=== PATIENT | male | born 1945 ===

== ENCOUNTER 2018-08-30 10:03 | Inpatient (IN) | payer MEDICARE, MEDICAID ==
[2018-08-30 10:09] VITALS: BMI 25.0
--- NOTE | 2018-08-30 12:44 | RAD ---
HISTORY: SOB COMPARISON: Chest x-ray performed 04/09/17 TECHNIQUE: Chest PA and lateral FINDINGS: LUNGS: Central vascular prominence. Mild hilar/infrahilar atelectasis or infiltrate. Please note that chest x-ray has limited sensitivity for the detection of pulmonary masses. PLEURA: No significant pleural effusion identified. No definite pneumothorax . CARDIOVASCULAR: Heart size appears within normal limits. Atherosclerotic calcifications. OSSEOUS STRUCTURES: Degenerative changes. VISUALIZED UPPER ABDOMEN: Elevation of the right hemidiaphragm. OTHER FINDINGS: Partially imaged right upper extremity vascular stent. Interval addition of left vascular stent, left axillary/subclavian vein. IMPRESSION: Central vascular prominence. Mild hilar/infrahilar atelectasis or infiltrate.
[2018-08-30 13:05] LABS: BASO % 0.7 % (0.0-2.0); EOS # 0.2 K/uL (0.0-0.7); HEMOGLOBIN 11.9 g/dL (12.0-18.0); LYMPH # 0.9 K/uL (1.0-4.3); LYMPH % 17.7 % (20.0-40.0); MEAN CELL VOLUME 95.2 fL (80.0-94.0); MEAN CORPUSCULAR HEMOGLOBIN 31.8 pg (27.0-31.0); MEAN CORPUSCULAR HGB CONC 33.4 g/dL (33.0-37.0); MEAN PLATELET VOLUME 7.8 fL (7.2-11.7); MONO # 0.4 K/uL (0.0-0.8); MONO % 8.2 % (0.0-10.0); NEUT # 3.7 K/uL (1.8-7.0); NEUT % 70.4 % (50.0-75.0); NRBC % 0.1 % (0.0-2.0); RBC 3.73 Mil/uL (4.40-5.90); RED CELL DISTRIBUTION WIDTH 16.3 % (11.5-14.5); WHITE BLOOD COUNT 5.3 K/uL (4.8-10.8)
[2018-08-30 13:09] LABS: ALB/GLOB RATIO 1.4 (1.0-2.1); ALBUMIN 4.4 g/dL (3.5-5.0)
--- NOTE | 2018-08-30 13:15 | C.PDOC ---
History Of Present Illness 73 years old male with PMHx of ESRD (on dialysis MWF) presents to ED for complaints of non-productive cough associated with upper pain that began 3 days ago. Patient states he had dialysis today. Denies shortness of breath, chest pa in, nausea, vomiting, or any other complaints. Chief Complaint (Nursing): Cough, Cold, Congestion History Per: Patient History/Exam Limitations: no limitations Onset/Duration Of Symptoms: Days Current Symptoms Are (Timing): Still Present Recent travel outside of the [place]: No Past Medical History Reviewed: Historical Data, Nursing Documentation, Vital Signs Vital Signs: Last Vital Signs Temp 98.3 F 08/30/18 12:26 Pulse 76 08/30/18 12:26 Resp 18 08/30/18 12:26 BP 144/75 08/30/18 12:26 Pulse Ox 100 08/30/18 12:26 - Medical History PMH: Arthritis (BOTH KNEES-ANTIONETTE. IN COLD WEATHER), Asthma, COPD, HTN, Hypercholesterolemia, Kidney Stones, Pneumonia (HOSPITALIZED 2015), End Stage Renal Disease, Chronic Kidney Disease - [facility] Procedures BYPASS LEFT BRACHIAL ARTERY TO LOWER ARM VEIN, OPEN APPROACH (08/16/16) CONTROL BLEEDING IN RIGHT UPPER ARM, PERCUTANEOUS APPROACH (06/22/16) FLUOROSCOPY OF SUPERIOR VENA CAVA, GUIDANCE (06/22/16) HEMODIALYSIS (11/08/13) INSERTION OF INFUSION DEV INTO SUP VENA CAVA, PERC APPROACH (06/22/16) PERFORMANCE OF URINARY FILTRATION, MULTIPLE (06/22/16) PERFORMANCE OF URINARY FILTRATION, SINGLE (08/16/16) REVISION OF SYNTHETIC SUBSTITUTE IN UP ART, OPEN APPROACH (06/22/16) TRANSFUSE NONAUT RED BLOOD CELLS IN PERIPH VEIN, PERC (06/22/16) Family History: States: Unknown Family Hx - Social History Hx Tobacco Use: No Hx Alcohol Use: No Hx Substance Use: No - Immunization History Hx Tetanus Toxoid Vaccination: No Hx Influenza Vaccination: No Hx Pneumococcal Vaccination: No Review Of Systems Except As Marked, All Systems Reviewed And Found Negative. Respiratory: Positive for: Cough Musculoskeletal: Positive for: Back Pain Physical Exam - Physical Exam Appears: Non-toxic, No Acute Distress Skin: Normal Color, Warm, Dry, No Rash Head: Atraumatic, Normacephalic Eye(s): bilateral: Normal Inspection, PERRL, EOMI Oral Mucosa: Moist Throat: Normal, No Erythema, No Exudate, No Drooling Neck: Normal ROM, Supple Chest: Symmetrical, No Tenderness Cardiovascular: Rhythm Regular, No Murmur Respiratory: Normal Breath Sounds, No Rales, No Rhonchi, No Wheezing Gastrointestinal/Abdominal: Bowel Sounds (Active ), Soft, No Tenderness, No Guarding, No Rebound Extremity: Normal ROM, No Pedal Edema, Other (AV graft left upper extremity with positive bruit and thrill. ) Extremity: Bilateral: Normal ROM Pulses: Left Radial: Normal, Right Radial: Normal Neurological/Psych: Oriented x3, Normal Speech, Normal Motor, Normal Sensation, Normal Reflexes Gait: Steady ED Course And Treatment - Laboratory Results Result Diagrams: 09/02/18 06:59 09/02/18 06:59 Lab Results: Total Bilirubin 0.8 mg/dL (0.2-1.3) 08/30/18 12:50 AST 35 U/L (17-59) 08/30/18 12:50 ALT 22 U/L (21-72) 08/30/18 12:50 Alkaline Phosphatase 57 U/L (38-126) 08/30/18 12:50 Total Protein 7.6 g/dL (6.3-8.3) 08/30/18 12:50 Albumin 4.4 g/dL (3.5-5.0) 08/30/18 12:50 Globulin 3.2 gm/dL (2.2-3.9) 08/30/18 12:50 Albumin/Globulin Ratio 1.4 (1.0-2.1) 08/30/18 12:50 O2 Sat by Pulse Oximetry: 100 (RA) Pulse Ox Interpretation: Normal - Other Rad CXR X-Ray: Viewed By Me, Read By Radiologist Interpretation: HISTORY: SOB. COMPARISON: Chest x-ray performed 04/09/17. TECHNIQUE: Chest PA and lateral. FINDINGS: LUNGS: Central vascular prominence. Mild hilar/infrahilar atelectasis or infiltrate. Please note that chest x-ray has limited sensitivity for the detection of pulmonary masses. PLEURA: No significant pleural effusion identified. No definite pneumothorax . CARDIOVASCULAR: Heart size appears within normal limits. Atherosclerotic calcifications. OSSEOUS STRUCTURES: Degenerative changes. VISUALIZED UPPER ABDOMEN: Elevation of the right hemidiaphragm. OTHER FINDINGS: Partially imaged right upper extremity vascular stent. Interval addition of left vascular stent, left axillary/subclavian vein. IMPRESSION: Central vascular prominence. Mild hilar/infrahilar atelectasis or infiltrate. Medical Decision Making Medical Decision Making: Plan: * Blood work * CXR * Blood culture Progress: 2:18 - Spoke with Em Alexander which accepted the patient for admission under his service. Disposition Counseled Patient/Family Regarding: Studies Performed, Diagnosis - Disposition Disposition: HOSPITALIZED Disposition Time: 02:18 Condition: STABLE - Clinical Impression Clinical Impression: Pneumonia - Scribe Statement The provider has reviewed the documentation as recorded by the Scribe Nikolai Tao All medical record entries made by the Nurysibeladio were at my direction and personally dictated by me. I have reviewed the chart and agree that the record accurately reflects my personal performance of the history, physical exam, medical decision making, and the department course for this patient. I have also personally directed, reviewed, and agree with the discharge instructions and disposition.
[2018-08-30] MEDS ORDERED: cefTRIAXone IV 1 gm in Dextros 50 ML IVPB ONE (14:15)
[2018-08-30] MEDS ORDERED: Azithromycin 500 MG in Sodium Chloride 0.9% 250 ML IVPB STA (14:16)
[2018-08-30] MEDS ORDERED: Azithromycin 500mg/250ML NS 500 MG/250 ML BAG IVPB ONE (14:23)
[2018-08-31] MEDS: Azithromycin 500 MG in Sodium Chloride 0.9% 250 ML IVPB SCH (09:48)
--- NOTE | 2018-08-31 11:41 | CP.PCM.CON ---
History of Present Illness - History of Present Illness History of Present Illness: Nephrology Consultation Note: Assessment: Stable Pneumonia Hypertensive Chronic Kidney Disease (I12.0) End stage renal disease (N18.6) dependence on hemodialysis (Z99.2) (MWF) via AVF Anemia (D64.9), Hyperphosphatemia (E83.39), Secondary Hyperparathyroidism (E21.1), HTN (I12.0) Plan: No acute need for dialysis today. Will plan for dialysis tomorrow. Continue with Nephrovite 1 tab/day. PRBC as needed for anemia. Not on JAYA with dialysis as last Hb 11.9 Continue with phos binders, last phos level: check BP control with meds as ordered. Patient on RAAS senia as losartan Glycemic control, Dialysis consistent diet Further work up/management as per primary team Dose meds/antibiotics (if needed) for ESRD status. Avoid fleets enema/magnesium based laxatives. Thanks for allowing me to participate in care of your patient. Will follow patient with you. Please call if any Qs. had d/w team Dr Reji Simon Office: [phone] Chief Complaint;cough HPI: Pt is a 73 M with hx of ESRD on hemodialysis (MWF) via left AVF @ [facility] with Dr Rika serna , last dialysis mon, chronic anemia, h yperphosphatemia, secondary hyperparathyroidism, hypertension presented with complaints of cough and admitted with pneumonia Renal consult requested for ESRD management. besides cough, pt feels usual health. no SOB or fever/chills ROS: Cardiovascular: No chest pain. Pulmonary: No shortness of breath but has cough Gastrointestinal: denies abdominal pain No nausea. No vomiting. Genitourinary: No pain while urinating. Denies blood in urine. All other negative except as mentioned in HPI Physical Examination: General Appearance: Comfortable, in no acute respiratory distress, co-operative . Vitals reviewed and noted as below Head; Atraumatic, normocephalic ENT: no ulcers no thrush. Tongue is midline. Oropharynx: no rash or ulcers. EYES: Pupils are equal, round and reactive to light accommodation. Eye muscles and extraocular movement intact. Sclera is anicteric. Neck; supple no lymphadenopathy, no thyromegaly or bruit Lungs: Normal respiratory rate/effort. Breath sounds bilateral equal and left side rales + Heart: Normal rate. s1s2 normal. No rub or gallop. Extremities: no edema. No varicose veins Neurological: Patient is alert, awake and oriented to person, place and time. No focal deficit. Strength bilateral appropriate and equal Skin: Warm and dry. Normal turgor. No rash. Palpitation: Normal elasticity for age Abdomen: Abdomen is soft. Bowel sounds +. There is no abdominal tenderness, no guarding/rigidity or organomegaly Psych: normal insight and normal affect/mood MSK: no joint tenderness or swelling. Digits and nails normal, no deformity : kidney or bladder not palpable Access: AVF Labs/imaging reviewed. Past medical history, past surgical history, family history, social history, allergy reviewed and noted as below Family Hx: no hx of CKD. Non contributory Past Patient History - Infectious Disease Hx of Infectious Diseases: None - Past Medical History & Family History Past Medical History?: Yes - Past Social History Smoking Status: Never Smoked - CARDIAC Hx Hypercholesterolemia: Yes Hx Hypertension: Yes - PULMONARY Hx Asthma: Yes Hx Chronic Obstructive Pulmonary Disease (COPD): Yes Hx Pneumonia: Yes (HOSPITALIZED 2015) - NEUROLOGICAL Hx Neurological Disorder: No - HEENT Hx HEENT Problems: Yes Hx Cataracts: Yes (BILAT.) - RENAL Hx Chronic Kidney Disease: Yes Hx Kidney Stones: Yes - HEMATOLOGICAL/ONCOLOGICAL Hx Blood Disorders: Yes Hx Blood Transfusions: Yes - INTEGUMENTARY Hx Dermatological Problems: No - MUSCULOSKELETAL/RHEUMATOLOGICAL Hx Arthritis: Yes (BOTH KNEES-ANTIONETTE. IN COLD WEATHER) Hx Falls: No - GASTROINTESTINAL Hx Gastrointestinal Disorders: No - GENITOURINARY/GYNECOLOGICAL Hx Genitourinary Disorders: No - PSYCHIATRIC Hx Substance Use: No - SURGICAL HISTORY Hx Surgeries: Yes Hx Arteriovenous Shunt: Yes (RIGHT UPPER ARM) Other/Comment: HX: LASER TX. X4 FOR KIDNEY STONES. HX: AV FISTULA (RIGHT UPPER ARM) non working. right sc dialysis catheter placed 07/2016. Left arm AV shunt- working - ANESTHESIA Hx Anesthesia: Yes Hx Anesthesia Reactions: No Hx Malignant Hyperthermia: No Meds Allergies/Adverse Reactions: Allergies Allergy/AdvReac Type Severity Reaction Status Date / Time No Known Allergies Allergy Verified 08/30/18 10:08 - Medications Medications: Current Medications Aspirin (Aspirin Chewable) 81 mg PO HS [facility] Last Admin: 08/30/18 21:35 Dose: 81 mg Clopidogrel Bisulfate (Plavix) 75 mg PO HS [facility] Last Admin: 08/30/18 21:35 Dose: 75 mg Heparin Sodium (Porcine) (Heparin) 5,000 units SC Q8 [facility] Last Admin: 08/31/18 05:34 Dose: 5,000 units Heparin Sodium (Porcine) (Heparin) 2,000 units IVP MWF [facility] Azithromycin 500 mg/ Sodium (Chloride) 250 mls @ 250 mls/hr IVPB DAILY [facility]; Pro tocol Last Admin: 08/31/18 09:48 Dose: 250 mls/hr Ceftriaxone Sodium 1 gm/ (Sodium Chloride) 100 mls @ 100 mls/hr IVPB Q12H [facility]; Protocol Last Admin: 08/31/18 02:30 Dose: 100 mls/hr Losartan Potassium (Cozaar) 50 mg PO DAILY [facility] Last Admin: 08/31/18 09:10 Dose: 50 mg Rosuvastatin Calcium (Crestor) 10 mg PO HS [facility] Last Admin: 08/30/18 23:19 Dose: Not Given Vitamin B Complex/Vit C/Folic Acid (Nephro-Mark) 1 tab PO 0800 [facility] Results - Vital Signs Recent Vital Signs: Last Vital Signs Temp 98.4 F 08/31/18 07:52 Pulse 60 08/31/18 07:52 Resp 20 08/31/18 07:52 BP 144/70 08/31/18 07:52 Pulse Ox 99 08/31/18 07:52 - Labs Result Diagrams: 08/30/18 12:50 08/30/18 12:50 Labs: Laboratory Results - last 24 hr 08/30/18 08/30/18 12:50 12:50 WBC 5.3 RBC 3.73 L Hgb 11.9 L Hct 35.5 MCV 95.2 H MCH 31.8 H MCHC 33.4 RDW 16.3 H Plt Count 122 L MPV 7.8 Neut % (Auto) 70.4 Lymph % (Auto) 17.7 L Vernon % (Auto) 8.2 Eos % (Auto) 3.0 Baso % (Auto) 0.7 Neut # (Auto) 3.7 Lymph # (Auto) 0.9 L Vernon # (Auto) 0.4 Eos # (Auto) 0.2 Baso # (Auto) 0.0 Differential Comment Sodium 135 Potassium 4.2 Chloride 92 L Carbon Dioxide 30 Anion Gap 17 BUN 24 H Creatinine 4.6 H Est GFR ( Amer) 15 Est GFR (Non-Af Amer) 13 Random Glucose 64 L D Calcium 9.0 Total Bilirubin 0.8 AST 35 ALT 22 Alkaline Phosphatase 57 Total Protein 7.6 Albumin 4.4 Globulin 3.2 Albumin/Globulin Ratio 1.4
--- NOTE | 2018-08-31 16:29 | CP.PCM.HP ---
History of Present Illness - History of Present Illness History of Present Illness: Pt is a 73 M with hx of ESRD on hemodialysis (MWF) via left AVF @ [facility] with Dr Rika serna , last dialysis mon, chronic anemia, hyperphosphatemia, secondary hyperparathyroidism, hypertension presented with complaints of cough and admitted with pneumonia Renal consult requested for ESRD management. besides cough, pt feels usual health. no SOB or fever/chills Present on Admission - Present on Admission Any Indicators Present on Admission: No History of DVT/PE: No History of Uncontrolled Diabetes: No Urinary Catheter: No Decubitus Ulcer Present: No Review of Systems - Review of Systems All systems: reviewed and no additional remarkable complaints except (as mentioned in HPI) Past Patient History - Infectious Disease Hx of Infectious Diseases: None - Past Medical History & Family History Past Medical History?: Yes - Past Social History Smoking Status: Never Smoked - CARDIAC Hx Hypercholesterolemia: Yes Hx Hypertension: Yes - PULMONARY Hx Chronic Obstructive Pulmonary Disease (COPD): Yes - NEUROLOGICAL Hx Neurological Disorder: No - HEENT Hx HEENT Problems: Yes Hx Cataracts: Yes (BILAT.) - RENAL Hx Chronic Kidney Disease: Yes Hx Kidney Stones: Yes - HEMATOLOGICAL/ONCOLOGICAL Hx Blood Disorders: Yes Hx Blood Transfusions: Yes - INTEGUMENTARY Hx Dermatological Problems: No - MUSCULOSKELETAL/RHEUMATOLOGICAL Hx Arthritis: Yes (BOTH KNEES-ANTIONETTE. IN COLD WEATHER) - GASTROINTESTINAL Hx Gastrointestinal Disorders: No - GENITOURINARY/GYNECOLOGICAL Hx Genitourinary Disorders: No - PSYCHIATRIC Hx Substance Use: No - SURGICAL HISTORY Hx Surgeries: Yes Hx Arteriovenous Shunt: Yes (RIGHT UPPER ARM) Other/Comment: HX: LASER TX. X4 FOR KIDNEY STONES. HX: AV FISTULA (RIGHT UPPER ARM) non working. right sc dialysis catheter placed 07/2016. Left arm AV shunt- working - ANESTHESIA Hx Anesthesia: Yes Hx Anesthesia Reactions: No Hx Malignant Hyperthermia: No Meds Allergies/Adverse Reactions: Allergies Allergy/AdvReac Type Severity Reaction Status Date / Time No Known Allergies Allergy Verified 08/30/18 10:08 Physical Exam - Head Exam Head Exam: NORMAL INSPECTION - Eye Exam Eye Exam: Normal appearance - ENT Exam ENT Exam: Mucous Membranes Moist - Respiratory Exam Respiratory Exam: Rhonchi - Cardiovascular Exam Cardiovascular Exam: REGULAR RHYTHM, +S1, +S2 - GI/Abdominal Exam GI & Abdominal Exam: Normal Bowel Sounds - Extremities Exam Extremities exam: Positive for: normal inspection Results - Vital Signs Recent Vital Signs: Last Vital Signs Temp 97.9 F 08/31/18 16:00 Pulse 61 08/31/18 16:00 Resp 20 08/31/18 16:00 BP 149/75 08/31/18 16:00 Pulse Ox 100 08/31/18 16:00 - Labs Result Diagrams: 09/01/18 07:02 09/01/18 07:02 Assessment & Plan (1) Pneumonia Status: Acute (2) COPD (chronic obstructive pulmonary disease) Status: Acute (3) Dyspnea Status: Acute (4) ESRD (end stage renal disease) on dialysis Status: Acute (5) Pulmonary edema Status: Acute - Assessment and Plan (Free Text) Plan: Patient is being treated for community-acquired pneumonia Continue ceftriaxone and Zithromax Follow cultures Hemodialysis as per renal Blood pressure control DVT/GI prophylax
[2018-08-31] MEDS: Promethazine 6.25 MG/5 ML CUP PO PRN (17:34)
[2018-09-01 07:41] LABS: EOS # 0.1 K/uL (0.0-0.7); HEMOGLOBIN 10.7 g/dL (12.0-18.0); MONO # 0.4 K/uL (0.0-0.8); WHITE BLOOD COUNT 4.1 K/uL (4.8-10.8)
[2018-09-01 07:49] LABS: ALB/GLOB RATIO 1.3 (1.0-2.1); ALBUMIN 3.4 g/dL (3.5-5.0); CALCIUM 8.1 mg/dl (8.6-10.4)
[2018-09-01 07:57] LABS: BASO % 0.7 % (0.0-2.0); EOS % 3.6 % (0.0-4.0); LYMPH % 25.4 % (20.0-40.0); MEAN CELL VOLUME 96.4 fL (80.0-94.0); MEAN CORPUSCULAR HEMOGLOBIN 31.9 pg (27.0-31.0); MEAN CORPUSCULAR HGB CONC 33.1 g/dL (33.0-37.0); MEAN PLATELET VOLUME 7.8 fL (7.2-11.7); MONO % 8.7 % (0.0-10.0); NEUT # 2.5 K/uL (1.8-7.0); NEUT % 61.6 % (50.0-75.0); NRBC % 0.2 % (0.0-2.0); RBC 3.35 Mil/uL (4.40-5.90); RED CELL DISTRIBUTION WIDTH 15.7 % (11.5-14.5)
[2018-09-01] MEDS: Multivitamin Vitamin B Complex (Nephro-Vite) Tab PO SCH (08:40)
[2018-09-01] MEDS: Promethazine 6.25 MG/5 ML CUP PO PRN (09:32)
[2018-09-01] MEDS: Azithromycin 500 MG in Sodium Chloride 0.9% 250 ML IVPB SCH (09:56)
--- NOTE | 2018-09-01 10:52 | CP.PCM.PN ---
Subjective - Date & Time of Evaluation Date of Evaluation: 09/01/18 Time of Evaluation: 10:51 - Subjective Subjective: Nephrology Consultation Note: Assessment: Stable Pneumonia Hypertensive Chronic Kidney Disease (I12.0) End stage renal disease (N18.6) dependence on hemodialysis (Z99.2) (MWF) via AVF Anemia (D64.9), Hyperphosphatemia (E83.39), Secondary Hyperparathyroidism (E21.1), HTN (I12.0) Plan: Will plan for dialysis per MWF schedule. Continue with Nephrovite 1 tab/day. PRBC as needed for anemia. Not on JAYA with dialysis as last Hb 10.7 Continue with phos binders, last phos level: check BP control with meds as ordered. Patient on RAAS senia as losartan Glycemic control, Dialysis consistent diet Further work up/management as per primary team Dose meds/antibiotics for ESRD status. Avoid fleets enema/magnesium based laxatives. Thanks for allowing me to participate in care of your patient. Will follow patient with you. Please call if any Qs. had d/w team Dr Reji Simon Office: [phone] Chief Complaint;cough HPI: Pt is a 73 M with hx of ESRD on hemodialysis (MWF) via left AVF @ [facility] [address] Rika serna , last dialysis mon, chronic anemia, hyperphosphatemia, secondary hyperparathyroidism, hypertension presented with complaints of cough and admitted with pneumonia Renal consult requested for ESRD management. besides cough, pt feels usual health. no SOB or fever/chills ROS: Cardiovascular: No chest pain. Pulmonary: No shortness of breath but has cough with phlegm Gastrointestinal: denies abdominal pain No nausea. No vomiting. Genitourinary: No pain while urinating. Denies blood in urine. All other negative except as mentioned in HPI Physical Examination: seen on HD General Appearance: Comfortable, in no acute respiratory distress, co-operative . Vitals reviewed and noted as below Head; Atraumatic, normocephalic ENT: no ulcers no thrush. Tongue is midline. Oropharynx: no rash or ulcers. EYES: Pupils are equal, round and reactive to light accommodation. Eye muscles and extraocular movement intact. Sclera is anicteric. Neck; supple no lymphadenopathy, no thyromegaly or bruit Lungs: Normal respiratory rate/effort. Breath sounds bilateral equal and left side rales + Heart: Normal rate. s1s2 normal. No rub or gallop. Extremities: no edema. No varicose veins Neurological: Patient is alert, awake and oriented to person, place and time. No focal deficit. Strength bilateral appropriate and equal Skin: Warm and dry. Normal turgor. No rash. Palpitation: Normal elasticity for age Abdomen: Abdomen is soft. Bowel sounds +. There is no abdominal tenderness, no guarding/rigidity or organomegaly Psych: normal insight and normal affect/mood MSK: no joint tenderness or swelling. Digits and nails normal, no deformity : kidney or bladder not palpable Access: AVF Labs/imaging reviewed. Past medical history, past surgical history, family history, social history, allergy reviewed and noted as below Family Hx: no hx of CKD. Non contributory Objective - Vital Signs/Intake and Output Vital Signs (last 24 hours): Temp Pulse Resp BP Pulse Ox 98.1 F 51 L 24 131/57 L 100 09/01/18 09:00 09/01/18 10:39 09/01/18 10:39 09/01/18 10:39 09/01/18 09:00 Intake and Output: 09/01/18 09/01/18 06:59 18:59 Intake Total 300 Balance 300 - Medications Medications: Current Medications Aspirin (Aspirin Chewable) 81 mg PO HS [facility] Last Admin: 08/31/18 21:35 Dose: 81 mg Clopidogrel Bisulfate (Plavix) 75 mg PO HS [facility] Last Admin: 08/31/18 21:34 Dose: 75 mg Heparin Sodium (Porcine) (Heparin) 5,000 units SC Q8 [facility] Last Admin: 09/01/18 05:40 Dose: 5,000 units Azithromycin 500 mg/ Sodium (Chloride) 250 mls @ 250 mls/hr IVPB DAILY [facility]; Protocol Last Admin: 09/01/18 09:56 Dose: Not Given Ceftriaxone Sodium 1 gm/ (Sodium Chloride) 100 mls @ 100 mls/hr IVPB Q12H [facility]; Protocol Last Admin: 09/01/18 02:42 Dose: 100 mls/hr Losartan Potassium (Cozaar) 50 mg PO DAILY [facility] Last Admin: 09/01/18 09:56 Dose: Not Given Promethazine HCl (Phenergan Syrup) 6.25 mg PO Q6 PRN PRN Reason: Cough Last Admin: 09/01/18 09:32 Dose: 6.25 mg Rosuvastatin Calcium (Crestor) 10 mg PO HS [facility] Last Admin: 08/31/18 21:35 Dose: 10 mg Vitamin B Complex/Vit C/Folic Acid (Nephro-Mark) 1 tab PO 0800 [facility] Last Admin: 09/01/18 08:40 Dose: Not Given - Labs Labs: 09/01/18 07:02 09/01/18 07:02
--- NOTE | 2018-09-01 13:47 | CP.PCM.PN ---
Subjective - Date & Time of Evaluation Date of Evaluation: 09/01/18 Time of Evaluation: 13:47 - Subjective Subjective: Pt is seen and examined Afebrile Repoprts improved dyspnea Objective - Vital Signs/Intake and Output Vital Signs (last 24 hours): Temp Pulse Resp BP Pulse Ox 98.1 F 51 L 24 101/69 100 09/01/18 09:00 09/01/18 10:39 09/01/18 10:39 09/01/18 11:30 09/01/18 09:00 Intake and Output: 09/01/18 09/01/18 06:59 18:59 Intake Total 300 Balance 300 - Medications Medications: Current Medications Aspirin (Aspirin Chewable) 81 mg PO HS [facility] Last Admin: 08/31/18 21:35 Dose: 81 mg Clopidogrel Bisulfate (Plavix) 75 mg PO HS [facility] Last Admin: 08/31/18 21:34 Dose: 75 mg Heparin Sodium (Porcine) (Heparin) 5,000 units SC Q8 [facility] Last Admin: 09/01/18 13:23 Dose: 5,000 units Azithromycin 500 mg/ Sodium (Chloride) 250 mls @ 250 mls/hr IVPB DAILY [facility]; Protocol Last Admin: 09/01/18 09:56 Dose: Not Given Ceftriaxone Sodium 1 gm/ (Sodium Chloride) 100 mls @ 100 mls/hr IVPB Q12H [facility]; Protocol Last Admin: 09/01/18 02:42 Dose: 100 mls/hr Losartan Potassium (Cozaar) 50 mg PO DAILY [facility] Last Admin: 09/01/18 09:56 Dose: Not Given Promethazine HCl (Phenergan Syrup) 6.25 mg PO Q6 PRN PRN Reason: Cough Last Admin: 09/01/18 09:32 Dose: 6.25 mg Rosuvastatin Calcium (Crestor) 10 mg PO HS [facility] Last Admin: 08/31/18 21:35 Dose: 10 mg Vitamin B Complex/Vit C/Folic Acid (Nephro-Mark) 1 tab PO 0800 [facility] Last Admin: 09/01/18 08:40 Dose: Not Given - Labs Labs: 09/01/18 07:02 09/01/18 07:02 - ENT Exam ENT Exam: Mucous Membranes Moist - Respiratory Exam Respiratory Exam: Rhonchi - Cardiovascular Exam Cardiovascular Exam: REGULAR RHYTHM, +S1, +S2 - GI/Abdominal Exam GI & Abdominal Exam: Soft, Normal Bowel Sounds - Extremities Exam Extremities Exam: Normal Inspection Assessment and Plan (1) Pneumonia Status: Acute (2) COPD (chronic obstructive pulmonary disease) Status: Acute (3) ESRD (end stage renal disease) on dialysis Status: Acute (4) Pulmonary edema Status: Acute - Assessment and Plan (Free Text) Plan: Continue ceftriaxone and Zithromax Promethazine Hemodialysis as per renal Plavix DVT/GI prophylax
[2018-09-02 07:12] LABS: BASO % 0.8 % (0.0-2.0); EOS # 0.2 K/uL (0.0-0.7); EOS % 4.4 % (0.0-4.0); HEMOGLOBIN 11.4 g/dL (12.0-18.0); LYMPH % 22.5 % (20.0-40.0); MEAN CELL VOLUME 96.1 fL (80.0-94.0); MEAN CORPUSCULAR HGB CONC 33.3 g/dL (33.0-37.0); MEAN PLATELET VOLUME 8.1 fL (7.2-11.7); MONO # 0.5 K/uL (0.0-0.8); MONO % 11.1 % (0.0-10.0); NEUT # 2.6 K/uL (1.8-7.0); NEUT % 61.2 % (50.0-75.0); NRBC % 0.1 % (0.0-2.0); RBC 3.57 Mil/uL (4.40-5.90); RED CELL DISTRIBUTION WIDTH 15.7 % (11.5-14.5); WHITE BLOOD COUNT 4.3 K/uL (4.8-10.8)
[2018-09-02] MEDS: Multivitamin Vitamin B Complex (Nephro-Vite) Tab PO SCH (07:47)
[2018-09-02 08:10] LABS: ALB/GLOB RATIO 1.3 (1.0-2.1); ALBUMIN 3.5 g/dL (3.5-5.0); CALCIUM 8.3 mg/dl (8.6-10.4)
[2018-09-02] MEDS: Azithromycin 500 MG in Sodium Chloride 0.9% 250 ML IVPB SCH (09:37)
--- NOTE | 2018-09-02 12:47 | CT ---
Date of service: 09/02/2018 CT chest without IV contrast Indication: Hemoptysis Technique: Contiguous axial images were obtained through the chest without intravenous contrast enhancement. Sagittal and coronal reconstructions were generated and reviewed. This CT exam was performed using 1 or more of the following dose reduction techniques: Automated exposure control, adjustment of the MAA and/or kV according to patient size, and/or use of iterative reconstruction technique. Radiation dose (DLP): 244.75 MGy-cm. Comparison: Chest x-ray performed 08/30/18 Findings: Visualized portions of the inferior thyroid gland appear unremarkable. The unenhanced mediastinal and hilar vascular structures appear grossly unremarkable. The heart appears within normal limits of size. Sub cm mediastinal and prevascular adenopathy. Dense coronary artery calcifications. Mild right basilar atelectasis/infiltrate. No pleural effusion. No pneumothorax. 3 mm left upper lobe nodule (series 3, image 20). Mild distal esophageal wall thickening. Limited visualization of the noncontrast upper abdomen; partially imaged left kidney with coarse calcifications. Punctate hepatic calcification, likely granuloma. Bilateral vascular stents. Bilateral sub cm axillary lymph nodes. Partially imaged 4 mm submandibular lymph node. Osseous demineralization. Re-identified lower cervical vertebral body compression fracture deformities. Multilevel degenerative changes of the thoracic spine with anterior osteophyte formation. Impression: Mild right basilar atelectasis/infiltrate. 3 mm left upper lobe pulmonary nodule. In the absence of risk factors for lung cancer, no specific imaging follow-up is required. If the patient is a smoker or has other risk factors, follow-up CT at 12 months is recommended to document stability. Mild distal esophageal wall thickening. Limited visualization of the noncontrast upper abdomen; partially imaged left kidney with coarse calcifications. Punctate hepatic calcification, likely granuloma. Additional findings as above.
--- NOTE | 2018-09-02 13:38 | CP.PCM.PN ---
Subjective - Date & Time of Evaluation Date of Evaluation: 09/02/18 Time of Evaluation: 13:38 Objective - Vital Signs/Intake and Output Vital Signs (last 24 hours): Temp Pulse Resp BP Pulse Ox 98.1 F 63 20 106/62 99 09/02/18 07:51 09/02/18 07:51 09/02/18 07:51 09/02/18 07:51 09/02/18 07:51 Intake and Output: 09/02/18 09/02/18 06:59 18:59 Intake Total 300 400 Balance 300 400 - Medications Medications: Current Medications Aspirin (Aspirin Chewable) 81 mg PO HS [facility] Last Admin: 09/01/18 21:38 Dose: 81 mg Clopidogrel Bisulfate (Plavix) 75 mg PO HS [facility] Last Admin: 09/01/18 21:38 Dose: 75 mg Heparin Sodium (Porcine) (Heparin) 5,000 units SC Q8 [facility] Last Admin: 09/02/18 13:29 Dose: 5,000 units Azithromycin 500 mg/ Sodium (Chloride) 250 mls @ 250 mls/hr IVPB DAILY [facility]; Protocol Last Admin: 09/02/18 09:37 Dose: 250 mls/hr Ceftriaxone Sodium 1 gm/ (Sodium Chloride) 100 mls @ 100 mls/hr IVPB Q12H [facility]; Protocol Last Admin: 09/02/18 02:15 Dose: 100 mls/hr Losartan Potassium (Cozaar) 50 mg PO DAILY [facility] Last Admin: 09/02/18 09:13 Dose: 50 mg Promethazine HCl (Phenergan Syrup) 6.25 mg PO Q6 PRN PRN Reason: Cough Last Admin: 09/01/18 09:32 Dose: 6.25 mg Rosuvastatin Calcium (Crestor) 10 mg PO HS [facility] Last Admin: 09/01/18 21:41 Dose: 10 mg Vitamin B Complex/Vit C/Folic Acid (Nephro-Mark) 1 tab PO 0800 [facility] Last Admin: 09/02/18 07:47 Dose: 1 tab - Labs Labs: 09/02/18 06:59 09/02/18 06:59 Assessment and Plan (1) Pneumonia Status: Acute (2) COPD (chronic obstructive pulmonary disease) Status: Acute (3) ESRD (end stage renal disease) on dialysis Status: Acute (4) Pulmonary edema Status: Acute
--- NOTE | 2018-09-02 14:57 | CP.PCM.PN ---
Subjective - Date & Time of Evaluation Date of Evaluation: 09/02/18 Time of Evaluation: 14:57 - Subjective Subjective: Nephrology Consultation Note: Assessment: Stable Pneumonia Hypertensive Chronic Kidney Disease (I12.0) End stage renal disease (N18.6) dependence on hemodialysis (Z99.2) (MWF) via AVF Anemia (D64.9), Hyperphosphatemia (E83.39), Secondary Hyperparathyroidism (E21.1), HTN (I12.0) Plan: Will plan for dialysis per MWF schedule. Continue with Nephrovite 1 tab/day. PRBC as needed for anemia. Not on JAYA with dialysis as last Hb 11.4 Continue with phos binders, last phos level: check BP control with meds as ordered. Patient on RAAS senia as losartan Glycemic control, Dialysis consistent diet Further work up/management as per primary team Dose meds/antibiotics for ESRD status. Avoid fleets enema/magnesium based laxatives. CT chest results reviewed Thanks for allowing me to participate in care of your patient. Will follow patie nt with you. Please call if any Qs. had d/w team Dr Reji Simon Office: [phone] Chief Complaint;cough HPI: Pt is a 73 M with hx of ESRD on hemodialysis (MWF) via left AVF @ [facility] with Dr Rika serna , last dialysis mon, chronic anemia, hyperphosphate robin, secondary hyperparathyroidism, hypertension presented with complaints of cough and admitted with pneumonia Renal consult requested for ESRD management. besides cough, pt feels usual health. no SOB or fever/chills ROS: Cardiovascular: No chest pain. Pulmonary: No shortness of breath but has cough with phlegm which is blood tinged Gastrointestinal: denies abdominal pain No nausea. No vomiting. Genitourinary: No pain while urinating. Denies blood in urine. All other negative except as mentioned in HPI Physical Examination: General Appearance: Comfortable, in no acute respiratory distress, co-operative . Vitals reviewed and noted as below Head; Atraumatic, normocephalic ENT: no ulcers no thrush. Tongue is midline. Oropharynx: no rash or ulcers. EYES: Pupils are equal, round and reactive to light accommodation. Eye muscles and extraocular movement intact. Sclera is anicteric. Neck; supple no lymphadenopathy, no thyromegaly or bruit Lungs: Normal respiratory rate/effort. Breath sounds bilateral equal and left side rales + Heart: Normal rate. s1s2 normal. No rub or gallop. Extremities: no edema. No varicose veins Neurological: Patient is alert, awake and oriented to person, place and time. No focal deficit. Strength bilateral appropriate and equal Skin: Warm and dry. Normal turgor. No rash. Palpitation: Normal elasticity for age Abdomen: Abdomen is soft. Bowel sounds +. There is no abdominal tenderness, no guarding/rigidity or organomegaly Psych: normal insight and normal affect/mood MSK: no joint tenderness or swelling. Digits and nails normal, no deformity : kidney or bladder not palpable Access: AVF Labs/imaging reviewed. Past medical history, past surgical history, family history, social history, allergy reviewed and noted as below Family Hx: no hx of CKD. Non contributory Objective - Vital Signs/Intake and Output Vital Signs (last 24 hours): Temp Pulse Resp BP Pulse Ox 98.1 F 63 20 106/62 99 09/02/18 07:51 09/02/18 07:51 09/02/18 07:51 09/02/18 07:51 09/02/18 07:51 Intake and Output: 09/02/18 09/02/18 06:59 18:59 Intake Total 300 400 Balance 300 400 - Medications Medications: Current Medications Aspirin (Aspirin Chewable) 81 mg PO HS [facility] Last Admin: 09/01/18 21:38 Dose: 81 mg Clopidogrel Bisulfate (Plavix) 75 mg PO HS [facility] Last Admin: 09/01/18 21:38 Dose: 75 mg Heparin Sodium (Porcine) (Heparin) 5,000 units SC Q8 [facility] Last Admin: 09/02/18 13:29 Dose: 5,000 units Azithromycin 500 mg/ Sodium (Chloride) 250 mls @ 250 mls/hr IVPB DAILY [facility]; Protocol Last Admin: 09/02/18 09:37 Dose: 250 mls/hr Ceftriaxone Sodium 1 gm/ (Sodium Chloride) 100 mls @ 100 mls/hr IVPB Q12H [facility]; Protocol Last Admin: 09/02/18 13:56 Dose: 100 mls/hr Losartan Potassium (Cozaar) 50 mg PO DAILY [facility] Last Admin: 09/02/18 09:13 Dose: 50 mg Promethazine HCl (Phenergan Syrup) 6.25 mg PO Q6 PRN PRN Reason: Cough Last Admin: 09/01/18 09:32 Dose: 6.25 mg Rosuvastatin Calcium (Crestor) 10 mg PO HS [facility] Last Admin: 09/01/18 21:41 Dose: 10 mg Vitamin B Complex/Vit C/Folic Acid (Nephro-Mark) 1 tab PO 0800 [facility] Last Admin: 09/02/18 07:47 Dose: 1 tab - Labs Labs: 09/02/18 06:59 09/02/18 06:59
[2018-09-03] MEDS: Multivitamin Vitamin B Complex (Nephro-Vite) Tab PO SCH (07:31)
[2018-09-03] MEDS: Azithromycin 500 MG in Sodium Chloride 0.9% 250 ML IVPB SCH (09:28)
[2018-09-03 13:24] VITALS: TEMP 97.7
--- NOTE | 2018-09-03 14:05 | CP.PCM.PN ---
Subjective - Date & Time of Evaluation Date of Evaluation: 09/03/18 Time of Evaluation: 14:04 - Subjective Subjective: Nephrology Consultation Note: Assessment: Stable Pneumonia Hypertensive Chronic Kidney Disease (I12.0) End stage renal disease (N18.6) dependence on hemodialysis (Z99.2) (MWF) via AVF Anemia (D64.9), Hyperphosphatemia (E83.39), Secondary Hyperparathyroidism (E21.1), HTN (I12.0) Plan: Will plan for dialysis per MWF schedule. Continue with Nephrovite 1 tab/day. PRBC as needed for anemia. Not on JAYA with dialysis as last Hb 11.4 Continue with phos binders, last phos level: check BP control with meds as ordered. Patient on RAAS senia as losartan Glycemic control, Dialysis consistent diet Further work up/management as per primary team Dose meds/antibiotics for ESRD status. Avoid fleets enema/magnesium based laxatives. CT chest results reviewed Thanks for allowing me to participate in care of your patient. Will follow patie nt with you. Please call if any Qs. had d/w team Dr Reji Simon Office: [phone] Chief Complaint;cough HPI: Pt is a 73 M with hx of ESRD on hemodialysis (MWF) via left AVF @ [facility] with Dr Rika serna , last dialysis mon, chronic anemia, hyperphosphate robin, secondary hyperparathyroidism, hypertension presented with complaints of cough and admitted with pneumonia Renal consult requested for ESRD management. besides cough, pt feels usual health. no SOB or fever/chills ROS: Cardiovascular: No chest pain. Pulmonary: No shortness of breath but has cough with phlegm which is blood tinged but better now Gastrointestinal: denies abdominal pain No nausea. No vomiting. Genitourinary: No pain while urinating. Denies blood in urine. All other negative except as mentioned in HPI Physical Examination: seen on HD General Appearance: Comfortable, in no acute respiratory distress, co-operative . Vitals reviewed and noted as below Head; Atraumatic, normocephalic ENT: no ulcers no thrush. Tongue is midline. Oropharynx: no rash or ulcers. EYES: Pupils are equal, round and reactive to light accommodation. Eye muscles and extraocular movement intact. Sclera is anicteric. Neck; supple no lymphadenopathy, no thyromegaly or bruit Lungs: Normal respiratory rate/effort. Breath sounds bilateral equal and clearer Heart: Normal rate. s1s2 normal. No rub or gallop. Extremities: no edema. No varicose veins Neurological: Patient is alert, awake and oriented to person, place and time. No focal deficit. Strength bilateral appropriate and equal Skin: Warm and dry. Normal turgor. No rash. Palpitation: Normal elasticity for age Abdomen: Abdomen is soft. Bowel sounds +. There is no abdominal tenderness, no guarding/rigidity or organomegaly Psych: normal insight and normal affect/mood MSK: no joint tenderness or swelling. Digits and nails normal, no deformity : kidney or bladder not palpable Access: AVF Labs/imaging reviewed. Past medical history, past surgical history, family history, social history, allergy reviewed and noted as below Family Hx: no hx of CKD. Non contributory Objective - Vital Signs/Intake and Output Vital Signs (last 24 hours): Temp Pulse Resp BP Pulse Ox 97.7 F 65 18 126/77 99 09/03/18 13:00 09/03/18 12:55 09/03/18 13:00 09/03/18 13:45 09/03/18 13:00 Intake and Output: 09/03/18 09/03/18 06:59 18:59 Intake Total 400 Balance 400 - Medications Medications: Current Medications Aspirin (Aspirin Chewable) 81 mg PO HS [facility] Last Admin: 09/02/18 21:31 Dose: 81 mg Clopidogrel Bisulfate (Plavix) 75 mg PO HS [facility] Last Admin: 09/02/18 21:31 Dose: 75 mg Heparin Sodium (Porcine) (Heparin) 5,000 units SC Q8 [facility] Last Admin: 09/03/18 13:00 Dose: Not Given Azithromycin 500 mg/ Sodium (Chloride) 250 mls @ 250 mls/hr IVPB DAILY [facility]; Protocol Last Admin: 09/03/18 09:28 Dose: 250 mls/hr Ceftriaxone Sodium 1 gm/ (Sodium Chloride) 100 mls @ 100 mls/hr IVPB Q12H [facility]; Protocol Last Admin: 09/03/18 13:59 Dose: Not Given Losartan Potassium (Cozaar) 50 mg PO DAILY [facility] Last Admin: 09/03/18 09:05 Dose: 50 mg Promethazine HCl (Phenergan Syrup) 6.25 mg PO Q6 PRN PRN Reason: Cough Last Admin: 09/01/18 09:32 Dose: 6.25 mg Rosuvastatin Calcium (Crestor) 10 mg PO HS [facility] Last Admin: 09/02/18 21:31 Dose: 10 mg Vitamin B Complex/Vit C/Folic Acid (Nephro-Mark) 1 tab PO 0800 [facility] Last Admin: 09/03/18 07:31 Dose: 1 tab - Labs Labs: 09/02/18 06:59 09/02/18 06:59
[2018-09-03] MEDS: Promethazine 6.25 MG/5 ML CUP PO PRN (14:16)
--- NOTE | 2018-09-03 16:18 | CP.PCM.PN ---
Subjective - Date & Time of Evaluation Date of Evaluation: 09/03/18 Time of Evaluation: 11:20 - Subjective Subjective: patient seen today, states feels better, sob improved, denies any chest pain , c/o cough , no blood noted in the sputum vss - reviewed- stable , a febrile for HD today Objective - Vital Signs/Intake and Output Vital Signs (last 24 hours): Temp Pulse Resp BP Pulse Ox 97.7 F 65 18 138/79 99 09/03/18 13:00 09/03/18 12:55 09/03/18 13:00 09/03/18 16:00 09/03/18 13:00 Intake and Output: 09/03/18 09/03/18 06:59 18:59 Intake Total 400 Balance 400 - Medications Medications: Current Medications Aspirin (Aspirin Chewable) 81 mg PO HS [facility] Last Admin: 09/02/18 21:31 Dose: 81 mg Clopidogrel Bisulfate (Plavix) 75 mg PO HS [facility] Last Admin: 09/02/18 21:31 Dose: 75 mg Heparin Sodium (Porcine) (Heparin) 5,000 units SC Q8 [facility] Last Admin: 09/03/18 13:00 Dose: Not Given Azithromycin 500 mg/ Sodium (Chloride) 250 mls @ 250 mls/hr IVPB DAILY [facility]; Protocol Last Admin: 09/03/18 09:28 Dose: 250 mls/hr Ceftriaxone Sodium 1 gm/ (Sodium Chloride) 100 mls @ 100 mls/hr IVPB Q12H [facility]; Protocol Last Admin: 09/03/18 13:59 Dose: Not Given Losartan Potassium (Cozaar) 50 mg PO DAILY [facility] Last Admin: 09/03/18 09:05 Dose: 50 mg Promethazine HCl (Phenergan Syrup) 6.25 mg PO Q6 PRN PRN Reason: Cough Last Admin: 09/03/18 14:16 Dose: 6.25 mg Rosuvastatin Calcium (Crestor) 10 mg PO HS [facility] Last Admin: 09/02/18 21:31 Dose: 10 mg Vitamin B Complex/Vit C/Folic Acid (Nephro-Mark) 1 tab PO 0800 [facility] Last Admin: 09/03/18 07:31 Dose: 1 tab - Labs Labs: 09/02/18 06:59 09/02/18 06:59 Assessment and Plan - Assessment and Plan (Free Text) Assessment: A/P 73 yr old [place] pmhx of Asthma, COPD, HTN, Hypercholesterolemia,ESRD on HD - MWF admitted with pneumonia started on antibiotics and clinically improved blood tinged sputum noted and CT chest done -Mild right basilar atele ctasis/infiltrate. 3 mm left upper lobe pulmonary nodule. In the absence of risk factors for lung cancer, no specific imaging follow-up is required. If the patient is a smoker or has other risk factors, follow-up CT at 12 months is recommended to document stability. D/w Dr. Vasquez( covering for Dr. Perez ) cleared for discharge home today and f/u with Dr. Perez office in 1 week Discharge plan discussed with patient who understands and agree with plan RX given upon discharge
[2018-09-03 16:28] VITALS: BP 127/65; PULSE 71; RESP 16
--- NOTE | 2018-09-03 18:17 | CP.PCM.PN ---
Subjective - Date & Time of Evaluation Date of Evaluation: 09/03/18 Time of Evaluation: 18:17 Objective - Vital Signs/Intake and Output Vital Signs (last 24 hours): Temp Pulse Resp BP Pulse Ox 97.7 F 71 16 127/65 99 09/03/18 16:15 09/03/18 16:15 09/03/18 16:15 09/03/18 16:15 09/03/18 16:15 Intake and Output: 09/03/18 09/03/18 06:59 18:59 Intake Total 400 Balance 400 - Medications Medications: Current Medications Aspirin (Aspirin Chewable) 81 mg PO HS [facility] Last Admin: 09/02/18 21:31 Dose: 81 mg Clopidogrel Bisulfate (Plavix) 75 mg PO HS [facility] Last Admin: 09/02/18 21:31 Dose: 75 mg Heparin Sodium (Porcine) (Heparin) 5,000 units SC Q8 [facility] Last Admin: 09/03/18 13:00 Dose: Not Given Azithromycin 500 mg/ Sodium (Chloride) 250 mls @ 250 mls/hr IVPB DAILY [facility]; Protocol Last Admin: 09/03/18 09:28 Dose: 250 mls/hr Ceftriaxone Sodium 1 gm/ (Sodium Chloride) 100 mls @ 100 mls/hr IVPB Q12H [facility]; Protocol Last Admin: 09/03/18 13:59 Dose: Not Given Losartan Potassium (Cozaar) 50 mg PO DAILY [facility] Last Admin: 09/03/18 09:05 Dose: 50 mg Promethazine HCl (Phenergan Syrup) 6.25 mg PO Q6 PRN PRN Reason: Cough Last Admin: 09/03/18 14:16 Dose: 6.25 mg Rosuvastatin Calcium (Crestor) 10 mg PO HS [facility] Last Admin: 09/02/18 21:31 Dose: 10 mg Vitamin B Complex/Vit C/Folic Acid (Nephro-Mark) 1 tab PO 0800 [facility] Last Admin: 09/03/18 07:31 Dose: 1 tab - Labs Labs: 09/02/18 06:59 09/02/18 06:59 Assessment and Plan (1) Pneumonia Status: Acute (2) COPD (chronic obstructive pulmonary disease) Status: Acute (3) ESRD (end stage renal disease) on dialysis Status: Acute (4) Pulmonary edema Status: Acute
[2018-09-05 11:54] VITALS: O2SAT 100
--- NOTE | 2018-09-10 00:24 | CP.PCM.DIS ---
Provider - Provider Date of Admission: 08/30/18 14:51 Attending physician: Rocio Vasquez MD Consults: 08/30/18 20:40 Nephrology Consult Routine Comment: Consulting Provider: Reji Simon Consulting Physician: Reji Simon Reason for Consult: Dialysis Time Spent in preparation of Discharge (in minutes): 25 Diagnosis - Discharge Diagnosis (1) Pneumonia Status: Acute (2) COPD (chronic obstructive pulmonary disease) Status: Acute (3) ESRD (end stage renal disease) on dialysis Status: Acute (4) Pulmonary edema Status: Acute Hospital Course - Lab Results Lab Results: Micro Results 08/30/18 13:25 Blood Blood Culture - Final NO GROWTH AFTER 5 DAYS 08/30/18 13:25 Blood Gram Stain - Final TEST NOT PERFORMED 08/30/18 13:00 Blood Blood Culture - Final NO GROWTH AFTER 5 DAYS 08/30/18 13:00 Blood Gram Stain - Final TEST NOT PERFORMED Most Recent Lab Values WBC 4.3 K/uL (4.8-10.8) L 09/02/18 06:59 RBC 3.57 Mil/uL (4.40-5.90) L 09/02/18 06:59 Hgb 11.4 g/dL (12.0-18.0) L 09/02/18 06:59 Hct 34.3 % (35.0-51.0) L 09/02/18 06:59 MCV 96.1 fL (80.0-94.0) H 09/02/18 06:59 MCH 32.0 pg (27.0-31.0) H 09/02/18 06:59 MCHC 33.3 g/dL (33.0-37.0) 09/02/18 06:59 RDW 15.7 % (11.5-14.5) H 09/02/18 06:59 Plt Count 85 K/uL (130-400) L 09/02/18 06:59 MPV 8.1 fL (7.2-11.7) 09/02/18 06:59 Neut % (Auto) 61.2 % (50.0-75.0) 09/02/18 06:59 Lymph % (Auto) 22.5 % (20.0-40.0) 09/02/18 06:59 [place] % (Auto) 11.1 % (0.0-10.0) H 09/02/18 06:59 Eos % (Auto) 4.4 % (0.0-4.0) H 09/02/18 06:59 Baso % (Auto) 0.8 % (0.0-2.0) 09/02/18 06:59 Neut # (Auto) 2.6 K/uL (1.8-7.0) 09/02/18 06:59 Lymph # (Auto) 1.0 K/uL (1.0-4.3) 09/02/18 06:59 [place] # (Auto) 0.5 K/uL (0.0-0.8) 09/02/18 06:59 Eos # (Auto) 0.2 K/uL (0.0-0.7) 09/02/18 06:59 Baso # (Auto) 0.0 K/uL (0.0-0.2) 09/02/18 06:59 Differential Comment 08/30/18 12:50 Sodium 136 mmol/L (132-148) 09/02/18 06:59 Potassium 4.6 mmol/L (3.6-5.2) 09/02/18 06:59 Chloride 97 mmol/L (98-107) L 09/02/18 06:59 Carbon Dioxide 28 mmol/L (22-30) 09/02/18 06:59 Anion Gap 16 (10-20) 09/02/18 06:59 BUN 26 mg/dL (9-20) H 09/02/18 06:59 Creatinine 5.7 mg/dL (0.8-1.5) H 09/02/18 06:59 Est GFR ( Amer) 12 09/02/18 06:59 Est GFR (Non-Af Amer) 10 09/02/18 06:59 POC Glucose (mg/dL) 89 mg/dL (65-110) 09/03/18 11:30 Random Glucose 78 mg/dL (75-110) 09/02/18 06:59 Calcium 8.3 mg/dl (8.6-10.4) L 09/02/18 06:59 Total Bilirubin 0.4 mg/dL (0.2-1.3) 09/02/18 06:59 AST 38 U/L (17-59) 09/02/18 06:59 ALT 31 U/L (21-72) 09/02/18 06:59 Alkaline Phosphatase 48 U/L (38-126) 09/02/18 06:59 Total Protein 6.2 g/dL (6.3-8.3) L 09/02/18 06:59 Albumin 3.5 g/dL (3.5-5.0) 09/02/18 06:59 Globulin 2.7 gm/dL (2.2-3.9) 09/02/18 06:59 Albumin/Globulin Ratio 1.3 (1.0-2.1) 09/02/18 06:59 - Hospital Course Hospital Course: 73-year-old male with history of COPD, CHF, end-stage renal disease presented with nonproductive cough after hemodialysis. Patient was found to have pneumonia. Patient was admitted to hospital and was treated with IV antibioti cs. Patient's condition improved and was discharged home in stable condition Discharge Exam - Head Exam Head Exam: NORMAL INSPECTION - Eye Exam Eye Exam: Normal appearance - Respiratory Exam Respiratory Exam: Clear to PA & Lateral - Cardiovascular Exam Cardiovascular Exam: REGULAR RHYTHM - GI/Abdominal Exam GI & Abdominal Exam: Normal Bowel Sounds - Extremities Exam Extremities exam: normal inspection - Neurological Exam Neurological exam: Alert, Oriented x3 Discharge Plan - Discharge Medications Prescriptions: Moxifloxacin [Avelox] 400 mg PO DAILY #5 tab Albuterol/Ipratropium [Duoneb 3 MG/3 Ml-0.5 MG/3 Ml 3 Ml] 1 ea IH Q6 PRN 30 Days neb PRN Reason: Wheezing Promethazine [Phenergan Syrup] 6.25 mg PO Q6 PRN #240 ml PRN Reason: Cough - Follow Up Plan Condition: STABLE Disposition: HOME/ ROUTINE Instructions: Moxifloxacin (Systemic), Pneumonia, Adult (DC), Ipratropium and Albuterol, Promethazine Additional Instructions: Please f/u with Dr. serna office in 1 week Please continue HD as scheduled -MWF Please continue medication as per med. rec. Referrals: Rocio Vasquez MD [Staff Provider] - John Serna MD [Staff Provider] -
== END 2018-09-03 20:00 | disposition home or self-care (01) | DRG 193 ==
LOC: C.ER 10:03 → C.9E 14:51 → C.3T 19:40
PROVIDERS: ADMIT Internal Medicine Critical Care Medicine; ATTEND Internal Medicine Critical Care Medicine
PROC: 5A1D70Z Performance of Urinary Filtration, Intermittent, Less than 6 Hours Per Day (ICD-10-PCS; principal; 2018-09-01)
PROC: 5A1D70Z Performance of Urinary Filtration, Intermittent, Less than 6 Hours Per Day (ICD-10-PCS; 2018-09-03)
DX: J18.9 Pneumonia, unspecified organism (principal); N18.6 End stage renal disease; I12.0 Hypertensive chronic kidney disease with stage 5 chronic kidney disease or end stage renal disease; J44.0 Chronic obstructive pulmonary disease with (acute) lower respiratory infection; N25.81 Secondary hyperparathyroidism of renal origin; J81.1 Chronic pulmonary edema; Z99.2 Dependence on renal dialysis; E83.39 Other disorders of phosphorus metabolism; D64.9 Anemia, unspecified